=== PATIENT | male | born 1985 | race African-American/Black ===

== ENCOUNTER 2016-12-04 23:59 | Emergency (ER) | payer SELFPAY ==
[2016-12-04 21:10] LABS: INFLUENZA A POS (NEG); INFLUENZA B NEG (NEG)
== END 2016-12-05 00:25 | disposition home or self-care (01) ==
LOC: CED 23:59
DX: J10.1 Influenza due to other identified influenza virus with other respiratory manifestations (principal)
CPT/HCPCS: 87651; 87804; 99283